=== PATIENT | female | born 1995 | race Caucasian/White ===

== ENCOUNTER 2022-06-08 09:42 | Day surgery (SDC) | payer OTHER ==
[2022-06-08] MEDS ORDERED: hydrALAZINE 20 MG/ML VIAL SLOW IVP PRN (11:03)
== END 2022-06-08 12:52 | disposition home or self-care (01) ==
LOC: CSHLD/OP 09:42
PROVIDERS: ATTEND Obstetrics & Gynecology
DX: O47.1 False labor at or after 37 completed weeks of gestation (principal); Z3A.37 37 weeks gestation of pregnancy; Z79.899 Other long term (current) drug therapy
CPT/HCPCS: 99283

== ENCOUNTER 2022-06-27 02:36 | Inpatient (IN) | payer OTHER ==
[2022-06-27 03:20] LABS: Fetal Membranes Rupture No Membranes Rupture (No Rupture)
[2022-06-27 03:30] VITALS: BMI 32.9
[2022-06-27] MEDS ORDERED: hydrALAZINE 20 MG/ML VIAL SLOW IVP PRN ×2 (03:59→06:14)
[2022-06-27] MEDS ORDERED: Morphine 10 MG/ML VIAL SLOW IVP SCH (04:00)
[2022-06-27] MEDS ORDERED: Promethazine HCl 25 MG/ML VIAL IM SCH (04:00)
[2022-06-27] MEDS ORDERED: ePHEDrine Sulfate 50 MG/10 ML VIAL ONE (06:00)
[2022-06-27] MEDS ORDERED: Bupivacaine 0.25% HCL 30 ML VIAL ONE (06:00)
[2022-06-27] MEDS ORDERED: HYDROcodone/Acetaminophen 5/325 mg Tablet PO PRN (06:14)
[2022-06-27] MEDS ORDERED: Lidocaine 1% (PF) 30 ML VIAL SC PRN (06:14)
[2022-06-27] MEDS ORDERED: Promethazine HCl 25 MG/ML VIAL IM PRN ×2 (06:14→07:16)
[2022-06-27] MEDS ORDERED: Ibuprofen 800 MG TAB PO PRN (06:14)
[2022-06-27] MEDS ORDERED: Ondansetron PF 4 MG/2 ML Vial IVP PRN ×2 (06:14→07:16)
[2022-06-27] MEDS ORDERED: Lactated Ringer's 1,000 ML IV SCH (06:15)
[2022-06-27] MEDS ORDERED: NS w/ Oxytocin 30 units 500 ML IV SCH (06:15)
[2022-06-27] MEDS ORDERED: Fentanyl 2 mcg/Bup 0.1% Cadd 100 ML ONE (06:23)
[2022-06-27 06:43] LABS: Hemoglobin 12.3 g/dL (12.0-15.5); Mean Corpuscular HGB CONC 34.6 g/dL (32.0-36.0); Mean Corpuscular Hemoglobin 29.7 pg (27.0-33.0); Mean Corpuscular Volume 85.7 fl (81.6-98.3); Mean Platelet Volume 10.8 fl (7.4-10.4); Platelet Count 233 10x3/uL (150-450); RBC Distribution Width 13.7 % (11.5-14.5); Red Blood Cell (RBC) Count 4.14 10x6/uL (3.90-5.03); White Blood Cell (WBC) Count 13.3 10x3/uL (3.5-10.5)
[2022-06-27] MEDS ORDERED: Moisturizing Cream (Eucerin) 113 GM JAR TOP PRN (07:16)
[2022-06-27] MEDS ORDERED: diphenhydrAMINE 50 MG/ML VIAL IVP PRN (07:16)
[2022-06-27] MEDS ORDERED: ePHEDrine Sulfate 50 MG/10 ML VIAL SLOW IVP PRN (07:16)
[2022-06-27] MEDS ORDERED: Acetaminophen 325 MG TAB PO PRN (07:16)
[2022-06-27] MEDS ORDERED: Lactated Ringer's 500 ML IV PRN (07:16)
[2022-06-27] MEDS ORDERED: Naloxone HCl 0.4 mg/ml Vial IVP PRN ×2 (07:16)
[2022-06-27 07:29] LABS: HBSAg Index 0.23 S/CO (0-0.99); Hep B Surf Ag Non-Reactive S/CO (NonReactive); Syphilis Antibody Nonreactive (Nonreactive); Syphilis Antibody Index 0.04 S/CO (<1.00 Non-Reactive)
[2022-06-27] MEDS ORDERED: Fentanyl 2 mcg/Bupivacaine 0.1% Cassette 100 ML EPIDURAL SCH (07:30)
[2022-06-27] MEDS ORDERED: Communication Order-Pharmacy FS SCH (07:30)
[2022-06-27] MEDS: Lactated Ringer's 1,000 ML IV SCH ×2 (16:20→20:38)
[2022-06-27] MEDS: Ibuprofen 800 MG TAB PO SCH (21:15)
[2022-06-28] MEDS: Ibuprofen 800 MG TAB PO SCH ×2 (05:53→13:51)
[2022-06-28] MEDS: Lactated Ringer's 1,000 ML IV SCH ×2 (06:46→14:58)
[2022-06-28] MEDS ORDERED: Docusate 100 MG CAP PO SCH (09:00)
[2022-06-28] MEDS ORDERED: Prenatal Vitamin 1 TAB PO SCH (09:00)
[2022-06-28 11:32] VITALS: BP 113/71; TEMP 97.4
[2022-06-28] MEDS ORDERED: Lanolin Ointment 7 GM TUBE TOP PRN (13:23)
[2022-06-28] MEDS ORDERED: Milk Of Magnesia 30 ML UDCUP PO PRN (13:23)
[2022-06-28] MEDS ORDERED: Benzocaine-Menthol 82.5 ML CAN TOP PRN (13:23)
[2022-06-28] MEDS ORDERED: Bisacodyl 10 MG SUPP PR PRN (13:23)
[2022-06-28] MEDS ORDERED: Preparation H Ointment 28 GM TUBE PR PRN (13:23)
[2022-06-28] MEDS ORDERED: HYDROcodone/Acetaminophen 5/325 mg Tablet PO PRN ×2 (13:23)
[2022-06-28] MEDS ORDERED: hydrALAZINE 20 MG/ML VIAL SLOW IVP PRN (13:23)
[2022-06-28] MEDS ORDERED: Ondansetron PF 4 MG/2 ML Vial IVP PRN (13:23)
[2022-06-28] MEDS ORDERED: Ferrous Sulfate 325 MG TAB PO SCH (17:00)
== END 2022-06-28 17:10 | disposition home or self-care (01) | DRG 807 ==
LOC: CSHLD/OP 02:36 → CSHLD 06:09 → CSHPP 16:15
PROVIDERS: ADMIT Obstetrics & Gynecology; ATTEND Obstetrics & Gynecology
PROC: 10E0XZZ Delivery of Products of Conception, External Approach (ICD-10-PCS; principal; 2022-06-27)
DX: O69.81X0 Labor and delivery complicated by cord around neck, without compression, not applicable or unspecified (principal); Z37.0 Single live birth; Z3A.39 39 weeks gestation of pregnancy; O70.0 First degree perineal laceration during delivery
CPT/HCPCS: 51702; 84112; 85027; 86780; 86850; 86900; 86901; 87340; 99285; J2270; J2550; J2590; S0020